=== PATIENT | male | born 1955 | race Caucasian/White ===

== ENCOUNTER 2017-03-13 18:28 | Emergency (ER) | payer OTHER ==
[2017-03-13 19:53] VITALS: RESP 18
[2017-03-13 20:02] LABS: Appearance,Urine Clear (Clear); Bilirubin,Urine Negative (Negative); Glucose,Urine (UA) Negative (Negative); Ketones,Urine 1+ (Negative); Leukocyte Esterase,Urine Negative (Negative); Nitrite,Urine Negative (Negative); Protein,Urine Negative (Negative); Specific Gravity,Urine 1.018 (1.001-1.035); UA Billing (MACRO vs. MICRO) CHEM; Urobilinogen,Urine <2.0 mg/dL (<2.0)
--- NOTE | 2017-03-13 20:58 | US ---
EXAMINATION TYPE: US scrotum with doppler. Grayscale and color Doppler Duplex imaging performed of ligia vázquez scrotum. DATE OF EXAM: 03/13/2017 COMPARISON: NONE CLINICAL HISTORY: Pain. Discoloration to right testicle. Patient states he may have injured himself EXAM MEASUREMENTS: TESTICLES: Right Testicle: 4.6 x 2.4 x 3.1 cm Left Testicle: 4.6 x 2.3 x 3.0 cm EPIDIDYMIS HEAD: Right Epididymis: 2.8 cm, cystic area visualized measuring 4.4 x 2.3 x 4.5 cm Left Epididymis: 1.1 cm Doppler performed to assess for testicular vascularity; good bilateral color flow and waveforms are s een. There is no evidence of testicular torsion. Presence of hydroceles: Yes, bilaterally Presence of varicoceles: Yes, bilaterally Testicular echotexture is homogenous and symmetric. IMPRESSION: Large right epididymal cyst. Testicular torsion is not evident. Follow-up as indicated.
--- NOTE | 2017-03-13 21:58 | ED ---
General Adult HPI - General Chief complaint: Urogenital Stated complaint: Urogenital Time Seen by Provider: 03/13/17 19:14 Source: patient, RN notes reviewed Mode of arrival: ambulatory Limitations: no limitations - History of Present Illness Initial comments: 61-year-old male with past medical history of hypertension and history of right- sided testicular hydrocele presents with scrotal swelling for the past 2 days. Patient denies pain at rest. Denies dysuria. Denies fever or chills. Since patient was diagnosed with a hydrocele several years back he has been intermittently draining the right side of his scrotum with a needle. Patient states that approximately 3 days ago he strained his scrotum. Since that time he has noticed worsening swelling and bruising. Denies pain at rest but states he did on. Earlier today and had pain at that time. - Related Data Home Medications Medication Instructions Recorded Confirmed Atenolol [Tenormin] 50 mg PO DAILY 03/13/17 03/13/17 Lisinopril [Prinivil] 10 mg PO DAILY 03/13/17 03/13/17 Multivitamin [Men's Multi-Vitamin] 1 tab PO DAILY 03/13/17 03/13/17 Red Yeast Rice 600 mg PO DAILY 03/13/17 03/13/17 Allergies Allergy/AdvReac Type Severity Reaction Status Date / Time No Known Allergies Allergy Verified 03/13/17 18:55 Review of Systems ROS Statement: Those systems with pertinent positive or pertinent negative responses have been documented in the HPI. ROS Other: All systems not noted in ROS Statement are negative. Past Medical History Past Medical History: Hypertension History of Any Multi-Drug Resistant Organisms: None Reported Past Surgical History: Back Surgery Additional Past Surgical History / Comment(s): neck Past Psychological History: No Psychological Hx Reported Smoking Status: Never smoker Past Alcohol Use History: None Reported Past Drug Use History: None Reported General Exam Limitations: no limitations General appearance: alert, in no apparent distress Head exam: Present: atraumatic, normocephalic Eye exam: Present: normal appearance, PERRL ENT exam: Present: normal exam, mucous membranes moist Neck exam: Present: normal inspection, full ROM Respiratory exam: Present: normal lung sounds bilaterally. Absent: respiratory distress Cardiovascular Exam: Present: regular rate, normal rhythm GI/Abdominal exam: Present: soft. Absent: distended, tenderness exam: Present: scrotal swelling, other (Right scrotum has overlying ecchymosis, swelling, no tenderness to palpation.). Absent: urethral discharge Extremities exam: Present: normal inspection. Absent: pedal edema Neurological exam: Present: alert, oriented X3 Psychiatric exam: Present: normal affect, normal mood Skin exam: Present: warm, dry Course Vital Signs 03/13/17 03/13/17 18:46 19:52 Temperature 98.6 F 98.5 F Pulse Rate 67 64 Respiratory 20 18 Rate Blood Pressure 169/88 162/74 O2 Sat by Pulse 99 95 Oximetry Medical Decision Making - Medical Decision Making 61-year-old male presenting with right scrotal swelling. Minimal pain. No dysuria. Patient has been using a needle to drain fluid from his right scrotum proximally once a month for the past 2 years. He has a history of a right hydrocele. On examination there is swelling and ecchymosis of his scrotum primarily on the right. Ultrasound is negative for torsion, there is a cyst present on ultrasound. There is no active signs of hemorrhage. Patient not on any blood thinners. Urinalysis shows no signs of infection. Patient is instructed to not drain his scrotum. He will follow-up with urology in the next week. - Lab Data Lab Results 03/13/17 Range/Units 19:56 Urine Color Yellow Urine Appearance Clear (Clear) Urine pH 6.0 (5.0-8.0) Ur Specific [place] 1.018 (1.001-1.035) Urine Protein Negative (Negative) Urine Glucose (UA) Negative (Negative) Urine Ketones 1+ H (Negative) Urine Blood Negative (Negative) Urine Nitrite Negative (Negative) Urine Bilirubin Negative (Negative) Urine Urobilinogen <2.0 (<2.0) mg/dL Ur Leukocyte Esterase Negative (Negative) Disposition Clinical Impression: Hydrocele Disposition: HOME SELF-CARE Condition: Good Instructions: Hydrocele (ED) Referrals: Tim Schilling MD [Primary Care Provider] - 1-2 days Matt Mae MD [STAFF PHYSICIAN] - 1-2 days Time of Disposition: 21:57
[2017-03-13 22:03] VITALS: BP 161/72; PULSE 60; TEMP 97.5
== END 2017-03-13 22:01 | disposition home or self-care (01) ==
LOC: EC 18:28
DX: N43.3 Hydrocele, unspecified (principal); I10 Essential (primary) hypertension; Z79.899 Other long term (current) drug therapy
CPT/HCPCS: 76870; 81003; 93975; 99282; 99284

== ENCOUNTER → 2017-04-06 | Outpatient (CLI) | payer OTHER | END | disposition home or self-care (01) | LOC: LABPAT 15:12 | PROVIDERS: ATTEND Urology | DX: Z01.810 Encounter for preprocedural cardiovascular examination (principal); I10 Essential (primary) hypertension; N43.40 Spermatocele of epididymis, unspecified | CPT/HCPCS: 93005 ==

== ENCOUNTER 2017-04-16 11:19 | Day surgery (SDC) | payer OTHER ==
[2017-04-10 10:32] VITALS: BMI 30.1
[~2017-04-16 11:19] MED LIST: DEXAMETHASONE SOD PHOSPHATE 10 MG/ML 1 ML VIAL IV ONE; LACTATED RINGERS 1,000 ML IV SCH; ONDANSETRON 4 MG/2 ML VIAL IVP ONE; Pre Op ABX Message 1 EACH MISC MISCELLANE ONE
[2017-04-16] MEDS ORDERED: LIDOCAINE 1% 20 ML VIAL (10MG/ML) FOR IV START INTRADERMA ONE (12:04)
[2017-04-16] MEDS ORDERED: MIDAZOLAM 2 MG/2 ML VIAL ONE (12:34)
[2017-04-16] MEDS ORDERED: fentaNYL (PF) 50 MCG/ML 2 ML AMP ONE (12:34)
[2017-04-16] MEDS ORDERED: LIDOCAINE 1% INJ 10MG/ML (20 ML MDV) ONE (12:34)
[2017-04-16] MEDS ORDERED: ePHEDrine SULFATE/0.9% NACL/PF 50 MG/5 ML SYRINGE IV ONE (12:34)
[2017-04-16] MEDS ORDERED: PROPOFOL 10 MG/ML 20 ML VIAL IV ONE (12:34)
[2017-04-16] MEDS ORDERED: GLYCOPYRROLATE 0.2 MG/ML 2 ML VIAL ONE (12:34)
[2017-04-16] MEDS ORDERED: BUPIVACAINE (PF) 0.25% 30 ML VIAL SQ ONE ×3 (12:51)
--- NOTE | 2017-04-16 13:36 | P.OP ---
Date of Procedure: 04/16/17 Preoperative Diagnosis: right spermatocele Postoperative Diagnosis: Right spermatocele Procedure(s) Performed: Right spermatocelectomy Implants: Anesthesia: SHAGGY Surgeon: Shar Peter Disposition: PACU Indications for Procedure: Operative Findings: Description of Procedure: The patient is a 61-year-old male with a history of a right spermatocele that dates back over 5 years. it has been treated in the past with intermittent aspiration. The patient wishes to proceed with spermatocelectomy at this time. The patient was taken to the operating suite where general anesthesia via orotracheal intubation was instituted. The patient was placed in the supine position. The hair in the right anterior scrotum was clipped. The scrotum, penis, groins and suprapubic area were prepped with Betadine soap, painted with Betadine solution and draped in a sterile fashion. 5 mL of 0.25% bupivacaine was infiltrated around the right spermatic cord near the right pubic tubercle. A 3 cm midline incision was made in the anterior scrotum. Bleeding vessels were controlled using electrocautery. The incision was carried down to the spermatocele. The testicle was everted through the incision. The testicle was unremarkable. A spermatocele measuring 5-6 cm in greatest diameter was identified rising from the midportion of the epididymis. The spermatocele was dissected away from the testicle and underlying epididymal tissue using a combination of blunt and sharp dissection. Bleeding vessels were controlled using electrocautery. The spermatocele appeared to contain blood-tinged fluid consistent with a traumatic aspiration in the past. The spermatocele was transected at its junction with the epididymis and the spermatocele sac was submitted to pathology. The base of the spermatocele was cauterized. The testicle was returned to its normal anatomic position. The deep tissue of the scrotum was closed using running 3-0 chromic. Skin was closed using running 3- 0 chromic placed in a vertical mattress fashion. Sterile dressing was applied. The patient tolerated the procedure well and left the operative room awake and in satisfactory condition. Blood loss was less than 3 mL. Final sponge needle and instrument counts were reported as correct. The patient will be seen back in follow-up in approximately 10 days.
[2017-04-16 13:40] VITALS: TEMP 97.5
[2017-04-16] MEDS: HYDROmorphone 1 MG/ML 1 ML SYRINGE IVP PRN ×2 (13:53→14:05)
[2017-04-16] MEDS ORDERED: KETOROLAC 30 MG/ML 1 ML VIAL IVP ONE (14:06)
[2017-04-16 14:35] VITALS: RESP 16
[2017-04-16 15:44] VITALS: BP 159/70; PULSE 67
== END 2017-04-16 15:39 | disposition home or self-care (01) ==
LOC: OR 11:19
PROVIDERS: ATTEND Urology
DX: N43.41 Spermatocele of epididymis, single (principal); I10 Essential (primary) hypertension; Z87.891 Personal history of nicotine dependence; Z79.899 Other long term (current) drug therapy
CPT/HCPCS: 88304; 54840; J2250; J1100; J2405; J2001; J3010; J1885; J1170; J2704

== ENCOUNTER 2018-01-19 11:12 | Emergency (ER) | payer OTHER ==
[2018-01-19 11:15] VITALS: RESP 20
[2018-01-19] MEDS ORDERED: KETOROLAC 30 MG/ML 1 ML VIAL IM STA (11:28)
[2018-01-19] MEDS ORDERED: ORPHENADRINE 30 MG/ML 2 ML VIAL IM STA (11:29)
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
[2018-01-19 11:51] LABS: Appearance,Urine Clear (Clear); Bilirubin,Urine Negative (Negative); Blood,Urine Negative (Negative); Color,Urine Light Yellow; Glucose,Urine (UA) Negative (Negative); Ketones,Urine Negative (Negative); Leukocyte Esterase,Urine Negative (Negative); Nitrite,Urine Negative (Negative); Protein,Urine Negative (Negative); Specific Gravity,Urine 1.009 (1.001-1.035); Urobilinogen,Urine <2.0 mg/dL (<2.0)
--- NOTE | 2018-01-19 12:02 | XR ---
Abdomen HISTORY: pain Frontal view of the abdomen submitted on 2 images Lung bases are clear. There is no evident bowel obstruction or pneumoperitoneum. Degenerative disc ch anges are present in the visualized spine. Postop change noted in the lower lumbar spine, lumbosacral junction. IMPRESSION: Postop changes.
--- NOTE | 2018-01-19 12:03 | XR ---
Lumbar spine HISTORY: Low back pain 3 views of the lumbar spine Lumbar vertebral bodies show preserved height. Bone mineralization is mildly reduced. Patient shows p osterior lumbar fusion at L4-5 S1. Minimal anterolisthesis grade 1 L5-S1, retrolisthesis grade 1 L3-4 , L2-3. Multilevel spondylosis with loss of disc height at the intervertebral levels. Sclerosis prese nt in the posterior elements compatible with facet arthropathy. Apical scarring vascular calcificatio ns present within the aorta. Laminectomy change present at L5, L4. IMPRESSION: Postop changes, degenerative disc disease.
[2018-01-19 12:41] VITALS: BP 173/78; PULSE 47; TEMP 97.9
== END 2018-01-19 12:58 | disposition home or self-care (01) ==
LOC: EC 11:12
DX: M54.5 Low back pain (principal); R39.12 Poor urinary stream; R10.9 Unspecified abdominal pain; M51.36 Other intervertebral disc degeneration, lumbar region; M43.17 Spondylolisthesis, lumbosacral region; M47.816 Spondylosis without myelopathy or radiculopathy, lumbar region; G95.89 Other specified diseases of spinal cord; I10 Essential (primary) hypertension; Z79.899 Other long term (current) drug therapy; Z98.1 Arthrodesis status; X50.0XXA Overexertion from strenuous movement or load, initial encounter
CPT/HCPCS: 81003; 72100; 74018; 99284; 96372 ×2; J2360; J1885